=== PATIENT | female | born 1985 | race African-American/Black ===

== ENCOUNTER 2022-11-02 11:23 | Observation (INO) | payer MEDICAID ==
[2022-11-02] MEDS ORDERED: PREN-96 PO (13:26)
== END 2022-11-02 13:40 | disposition home or self-care (01) ==
LOC: LDRP 11:23 → UNDOADMOB 11:23 → LDRP 11:56 → UNDODISOB 13:40
PROVIDERS: ADMIT Obstetrics & Gynecology; ATTEND Obstetrics & Gynecology
DX: O62.9 Abnormality of forces of labor, unspecified (principal); Z3A.33 33 weeks gestation of pregnancy
CPT/HCPCS: 59025; 94760; G0378

== ENCOUNTER 2022-11-08 10:46 | Observation (INO) | payer MEDICAID ==
[~2022-11-08 10:46] MED LIST: PREN-96 PO
[2022-11-08] MEDS ORDERED: NIF10C PO (11:59)
[2022-11-08] MEDS ORDERED: ALBUAER3 IN (12:00)
== END 2022-11-08 12:14 | disposition home or self-care (01) ==
LOC: LDRP 10:46 → UNDOADMOB 10:46 → LDRP 11:17 → UNDODISOB 12:14
PROVIDERS: ADMIT Obstetrics & Gynecology; ATTEND Obstetrics & Gynecology
DX: O24.419 Gestational diabetes mellitus in pregnancy, unspecified control (principal); O62.9 Abnormality of forces of labor, unspecified; Z3A.34 34 weeks gestation of pregnancy; Z79.899 Other long term (current) drug therapy
CPT/HCPCS: 59025; 76818; 81002; 82948; 82962; 94760; G0378

== ENCOUNTER → 2022-11-17 | Outpatient (CLI) | payer MEDICAID ==
[~2022-11-17] MED LIST changes: +ALBUAER3 IN; +NIF10C PO
[2022-11-17 11:53] LABS: Basophils # (auto) 0 10 ^3/uL (0-0.2); Basophils % (auto) 0.8 % (0.0-2.0); Eosinophils # (auto) 0.1 10 ^3/uL (0-0.8); Eosinophils % (auto) 1.8 % (0.0-7.0); Hematocrit 37.6 % (36.0-46.0); Lymphocytes % (auto) 24.9 % (10.0-50.0); Mean Corpuscular Hemoglobin 31.8 pg (28.0-32.0); Mean Corpuscular Hgb Conc. 34.5 g/dL (32.0-36.0); Mean Corpuscular Volume 92.3 fL (80.0-100.0); Monocytes # (auto) 0.6 10 ^3/uL (0-1.3); Monocytes % (auto) 14.6 % (0.0-12.0); Neutrophils # (auto) 2.4 10 ^3/uL (1.6-8.6); Neutrophils % (auto) 57.9 % (37.0-80.0); Nucleated Red Blood Cells % 0.1 %; Red Blood Cells 4.07 10^6/uL (4.0-5.20); Red Cell Distribution Width 13.3 % (11.8-14.3); White Blood Cell 4.2 10^3/uL (4.4-10.8)
[2022-11-18 07:07] LABS: RPR Non Reactive (Non Reactive)
== END | disposition home or self-care (01) ==
LOC: LAB 11:24
PROVIDERS: ATTEND Obstetrics & Gynecology
DX: Z34.80 Encounter for supervision of other normal pregnancy, unspecified trimester (principal); Z3A.00 Weeks of gestation of pregnancy not specified
CPT/HCPCS: 36415; 84112; 85025; 86592

== ENCOUNTER 2022-11-26 21:38 | Observation (INO) | payer MEDICAID | END 2022-11-26 23:37 | disposition home or self-care (01) | LOC: EDUNIT# 21:38 → LDRP 21:38 | PROVIDERS: ADMIT Obstetrics & Gynecology; ATTEND Obstetrics & Gynecology | DX: O42.92 Full-term premature rupture of membranes, unspecified as to length of time between rupture and onset of labor (principal); Z3A.37 37 weeks gestation of pregnancy | CPT/HCPCS: 59025; 81002; 84112; G0378; Q0114 ==

== ENCOUNTER 2022-11-30 14:07 | Observation (INO) | payer MEDICAID | END 2022-12-03 13:52 | disposition home or self-care (01) | LOC: UNDOADMOB 12-03 11:04 → LDRP 12-03 11:04 → UNDODISOB 12-03 13:52 | PROVIDERS: ADMIT Obstetrics & Gynecology; ATTEND Obstetrics & Gynecology | DX: O24.419 Gestational diabetes mellitus in pregnancy, unspecified control (principal); O62.9 Abnormality of forces of labor, unspecified; O10.913 Unspecified pre-existing hypertension complicating pregnancy, third trimester; Z3A.38 38 weeks gestation of pregnancy | CPT/HCPCS: 59025; 76818; 81002; 82948; 94760; G0378 ==

== ENCOUNTER 2022-12-07 09:19 | Observation (INO) | payer MEDICAID ==
[2022-12-07] MEDS ORDERED: METF-370 PO (14:37)
== END 2022-12-07 14:44 | disposition home or self-care (01) ==
LOC: LDRP 13:00 → UNDOADMOB 13:00 → LDRP 13:10
PROVIDERS: ADMIT Obstetrics & Gynecology; ATTEND Obstetrics & Gynecology
DX: O24.419 Gestational diabetes mellitus in pregnancy, unspecified control (principal); O62.9 Abnormality of forces of labor, unspecified; Z3A.38 38 weeks gestation of pregnancy
CPT/HCPCS: 59025; 76818; 81002; 82948; 82962; 94760; G0378

== ENCOUNTER 2022-12-08 19:32 | Inpatient (IN) | payer MEDICAID ==
[~2022-12-08] VITALS: Ht 167.6 cm; Wt 101.6 kg
[~2022-12-08 19:32] MED LIST changes: +METF-370 PO
[2022-12-08] MEDS ORDERED: ACETAMINOPHEN 500 MG TAB PO ONE (20:45)
== END 2022-12-08 21:52 | disposition home or self-care (01) | DRG 566 ==
LOC: LDRP 19:32
PROVIDERS: ADMIT Obstetrics & Gynecology; ATTEND Obstetrics & Gynecology
DX: O24.419 Gestational diabetes mellitus in pregnancy, unspecified control (principal); Z3A.38 38 weeks gestation of pregnancy
CPT/HCPCS: 59025; 81002; 82962; G0378

== ENCOUNTER 2022-12-10 14:25 | Inpatient (IN) | payer MEDICAID ==
[~2022-12-10] VITALS: Ht 170.2 cm; Wt 101.6 kg
[2022-12-10] MEDS ORDERED: PROMETHAZINE HCL 25 MG/ML 1ML IV PRN (15:00)
[2022-12-10] MEDS ORDERED: LACTATED RINGER'S 1,000 ML IV SCH (15:00)
[2022-12-10] MEDS ORDERED: PHISODERM TOP SOLN 240ML BTL TOP PRN (15:00)
[2022-12-10] MEDS ORDERED: LIDOCAINE 2%HCL (LOCAL ANESTH.) INJ 20ML MDV IJ PRN (15:00)
[2022-12-10] MEDS ORDERED: BUTORPHANOL TARTRATE 2 MG/1 ML VIAL IV PRN ×2 (15:00)
[2022-12-10 15:56] LABS: Urine Bacteria FEW /hpf (None Seen); Urine Blood Negative /uL (Negative); Urine Specific Gravity 1.016 (1.001-1.035); Urine WBC 1 /hpf (0 - 5)
[2022-12-10] MEDS ORDERED: miSOPROStol 50 MCG per PRE-CUT 1/2 TAB PO PRN (16:00)
[2022-12-10] MEDS ORDERED: PENICILLIN G POT 5MIL/D5 50ML 50 ML IV ONE (16:00)
[2022-12-10] MEDS ORDERED: LACT. RINGERS/OXYTOCIN 20UNITS 500 ML IV ONE ×2 (16:00→16:30)
[2022-12-10] MEDS: DERMOPLAST 60ML BOTTLE TOP PRN (16:08)
[2022-12-10] MEDS: WITCH HAZEL-GLYCERIN PAD TOP PRN (16:08)
[2022-12-10 16:11] LABS: Alcohol, Urine < 3.0 mg/dL (0-10); Amphetamine Screen, Urine NEGATIVE (NEGATIVE); Barbiturate Scree,Urine NEGATIVE (NEGATIVE); Benzodiazephine Screen, Urine NEGATIVE (NEGATIVE); Cannabinoid Screen, Urine NEGATIVE (NEGATIVE); Cocaine Screen, Urine NEGATIVE (NEGATIVE); Opiate Scree,Urine NEGATIVE (NEGATIVE); Phencyclidine Screen, Urine NEGATIVE (NEGATIVE)
[2022-12-10 16:30] LABS: Basophils # (auto) 0 10 ^3/uL (0-0.2); Basophils % (auto) 0.5 % (0.0-2.0); Eosinophils # (auto) 0 10 ^3/uL (0-0.8); Hemoglobin 13.1 g/dL (12.2-16.2); Lymphocytes # (auto) 0.8 10 ^3/uL (0.4-5.4); Lymphocytes % (auto) 21.2 % (10.0-50.0); Mean Corpuscular Hemoglobin 31.1 pg (28.0-32.0); Mean Corpuscular Hgb Conc. 33.6 g/dL (32.0-36.0); Mean Corpuscular Volume 92.3 fL (80.0-100.0); Monocytes # (auto) 0.4 10 ^3/uL (0-1.3); Monocytes % (auto) 10.2 % (0.0-12.0); Neutrophils # (auto) 2.7 10 ^3/uL (1.6-8.6); Neutrophils % (auto) 67.1 % (37.0-80.0); Nucleated Red Blood Cells % 0.8 %; Red Blood Cells 4.23 10^6/uL (4.0-5.20); Red Cell Distribution Width 13.2 % (11.8-14.3)
[2022-12-10 16:35] LABS: Albumin 2.8 g/dL (3.4-5.0); Calcium 8.5 mg/dL (8.5-10.1); Potassium 4.2 mmol/L (3.5-5.1)
[2022-12-10 16:38] LABS: BUN/Creatinine Ratio 14.3; Bilirubin, Total 0.4 mg/dL (0.2-1.0); Total Protein 6.7 g/dL (6.4-8.2)
[2022-12-10] MEDS ORDERED: ONDANSETRON HCL 4 MG/2 ML VIAL IV PRN (17:45)
[2022-12-10] MEDS ORDERED: TRANEXAMIC ACID 1,000 MG in SODIUM CHL 0.9% 100 ML IV ONE (17:45)
[2022-12-10] MEDS ORDERED: miSOPROStol 100 mcg TAB PR PRN (17:45)
[2022-12-10] MEDS ORDERED: METHYLERGONOVINE MALEATE 0.2 MG/ML AMP IM PRN (17:45)
[2022-12-10] MEDS ORDERED: NALOXONE HCL 0.4 MG/ML VIAL IV ONE (18:15)
[2022-12-10] MEDS ORDERED: ePHEDrine SULFATE 50 MG/ML AMP IV ONE (18:15)
[2022-12-10] MEDS ORDERED: LACTATED RINGER'S 1,000 ML IV ONE (18:15)
[2022-12-10] MEDS ORDERED: fentaNYL CITRATE 100 MCG/2 ML VL IV ONE (18:15)
[2022-12-10] MEDS ORDERED: ROPIVACAINE HCL 200 ML EPI SCH (18:15)
[2022-12-10] MEDS ORDERED: Lidocaine W-Epinephrine 1.5%-1:200,000 INJ 10ml Vial ONE (18:48)
[2022-12-10] MEDS ORDERED: FAMOTIDINE (10MG/ML) 2ML VL IV ONE (19:35)
[2022-12-10] MEDS ORDERED: FAMOTIDINE (10MG/ML) 2ML VL IV PRN (19:45)
[2022-12-10 19:50] LABS: INR 0.92 (0.9-1.15)
[2022-12-10] MEDS ORDERED: PENICILLIN G POTASSIUM 2,500,000 UNITS in D5W 5% 50 ML IV SCH (20:00)
[2022-12-10] MEDS ORDERED: diphenhdrAMINE HCL 50 MG/1 ML VL IV PRN (20:15)
[2022-12-10] MEDS ORDERED: ACETAMINOPHEN 325 MG TAB PO PRN ×2 (21:30→22:30)
[2022-12-10] MEDS ORDERED: ONDANSETRON ODT 4 MG TAB PO PRN (22:30)
[2022-12-10 23:00] VITALS: BP 136/67
[2022-12-11 03:00] VITALS: BP 121/75
[2022-12-11] MEDS: IBUPROFEN 800 MG TAB PO PRN ×3 (04:10→21:45)
[2022-12-11 06:06] LABS: RPR Non Reactive (Non Reactive)
[2022-12-11 07:30] VITALS: BP 125/74
[2022-12-11 10:30] VITALS: BP 119/78
[2022-12-11] MEDS: HYDROcodone-ACET 5/325MG TAB PO PRN ×2 (12:54→18:49)
[2022-12-11 15:10] VITALS: BP 117/60
[2022-12-11 19:19] VITALS: BP 110/57
[2022-12-11] MEDS ORDERED: TETANUS-DIPTH-ACEL PERTUSSIS 0.5ML SYR Tdap IM ONE (21:00)
[2022-12-11] MEDS ORDERED: DOCUSATE SOD 100 MG CAP PO SCH (22:00)
[2022-12-11 22:47] VITALS: BP 117/72
[2022-12-12] MEDS: HYDROcodone-ACET 5/325MG TAB PO PRN ×2 (00:51→07:29)
[2022-12-12 03:00] VITALS: BP 107/65
[2022-12-12] MEDS: IBUPROFEN 800 MG TAB PO PRN ×2 (03:31→10:17)
[2022-12-12 07:10] VITALS: BP 116/74
[2022-12-12] MEDS: DERMOPLAST 60ML BOTTLE TOP PRN (10:27)
[2022-12-12] MEDS: WITCH HAZEL-GLYCERIN PAD TOP PRN (10:27)
[2022-12-12 10:36] VITALS: BP 132/87
== END 2022-12-12 10:51 | disposition home or self-care (01) | DRG 560 ==
LOC: LDRP 14:25
PROVIDERS: ADMIT Obstetrics & Gynecology; ATTEND Obstetrics & Gynecology
PROC: 10E0XZZ Delivery of Products of Conception, External Approach (ICD-10-PCS; principal; 2022-12-11)
PROC: 0HQ9XZZ Repair Perineum Skin, External Approach (ICD-10-PCS; 2022-12-11)
PROC: 3E0R3BZ Introduction of Anesthetic Agent into Spinal Canal, Percutaneous Approach (ICD-10-PCS; 2022-12-11)
PROC: 00HU33Z Insertion of Infusion Device into Spinal Canal, Percutaneous Approach (ICD-10-PCS; 2022-12-11)
DX: O24.429 Gestational diabetes mellitus in childbirth, unspecified control (principal); Z37.0 Single live birth; O70.0 First degree perineal laceration during delivery; Z3A.39 39 weeks gestation of pregnancy; Z20.822 Contact with and (suspected) exposure to COVID-19
CPT/HCPCS: 36415; 59025; 59409; 62282; 80053; 80307; 81001; 81002; 82948; 82962; 85025; 85610; 85730; 86592; 86850; 86900; 86901; 87426; 90715; 94760; 96360; 96361; G0378; J2540; J2590; J3490; J7060

== ENCOUNTER 2025-08-03 19:35 | Emergency (ER) | payer MEDICAID, OTHER ==
[~2025-08-03] VITALS: Ht 170.2 cm; Wt 92.0 kg
[~2025-08-03 19:35] MED LIST changes: -NIF10C PO; +NIFE10CA52 PO; +NITR-87 PO
[2025-08-03 19:39] VITALS: TEMP 98.6
[2025-08-04 03:13] LABS: Hematocrit 36.9 % (36.0-46.0); Hemoglobin 12.2 g/dL (12.2-16.2); Mean Corpuscular Hemoglobin 28.5 pg (28.0-32.0); Mean Corpuscular Volume 86.5 fL (80.0-100.0); Nucleated Red Blood Cells % 0.2 %
--- NOTE | 2025-08-04 03:27 | DVH ---
CHEST RADIOGRAPH Indication: sob Technique: Single frontal view of the chest was obtained COMPARISON: None FINDINGS: Lines and Tubes: None Lungs: Clear Pleura: No effusion. No pneumothorax. Cardiomediastinal contours: Unremarkable Bones: Unremarkable IMPRESSION: 1. No acute disease.
[2025-08-04 03:32] LABS: Alkaline Phosphatase 66 U/L (46-116); Anion Gap 15 (5-15); BUN/Creatinine Ratio 7.7 (10.0-20.0); Calcium 10.0 mg/dL (8.7-10.4); Carbon Dioxide 20 mmol/L (20-31); Chloride 104 mmol/L (98-107); Glucose 97 mg/dL (74-106); Potassium 4.4 mmol/L (3.5-5.1); Sodium 139 mmol/L (136-145)
[2025-08-04 03:33] LABS: Bilirubin, Total 1.0 mg/dL (0.2-1.0)
[2025-08-04 03:38] LABS: Alanine Aminotransferase 54 U/L (7-40); Albumin 4.8 g/dL (3.2-4.8); Blood Urea Nitrogen 8 mg/dL (9-23); Total Protein 8.8 g/dL (5.7-8.2)
--- NOTE | 2025-08-04 03:46 | ED.PDOC ---
SOB-HPI HPI Comments HPI: 40 year old female who came to ER for shortness of breath. Patient has history of asthma and anxiety. She ran out of her anxiety pills earlier, so she took some street Xanax, she became short of breath and extremely anxious, with one episode of nausea and vomiting. Patient is suspects that there was something mixed in the street Xanax. Past Medical History: Asthma, anxiety, panic attacks Surgical History: Denies Family History: Denies Personal and Social History: Denies HPI: Poor Historian. REVIEW OF SYSTEMS: CONSTITUTIONAL: Denies acute: fever, diaphoresis, chills, generalized weakness. HEAD: Denies acute: headache, photophobia Eyes: Denies acute: Double vision, vision loss, eye pain, eye discharge. EARS: Denies acute: tinnitus, hearing loss, ear discharge, ear pain, THROAT: Denies acute: sore throat, swelling, difficulty swallowing , pain with swallowing, change in voice. NECK: Denies acute: neck pain, neck swelling, stiff neck. HEART: Denies acute : chest pain, palpitations, LUNGS: Denies acute: , wheezing, cough, hemoptysis ABDOMEN: Denies acute: abdominal pain, Nausea, Vomiting, diarrhea, melena , hematemesis, hematochezia SKIN: Denies acute: rash, redness, lesions, itchiness. EXTREMITIES: Denies acute: calf pain, numbness, tingling, weakness, denies pain in extremity. Denies acute: Low back pain. Neuro: Denies acute: focal neurological deficit, motor or sensory focal neurological deficit, tremors, seizure like activity, confusion, dizziness, change in mental status, loss of bowel or bladder function, cauda equina like symptoms. : Denies acute: dysuria, hematuria, flank pain, increase in urinary frequency. PSYCH: Denies acute: hallucination, suicidal ideation, homicidal ideation. FEMALE: Denies acute: abnormal vaginal bleeding, foul odor, unusual discharge. PHYSICAL EXAM: General: ----mild----acute distress, awake and alert. Appears anxious Head: normocephalic, atraumatic. No raccoon's eyes, no cheek sign. Neck: supple, trachea is midline, no swelling. Throat: Normal phonation. Eyes:, no erythema, no purulent discharge, no proptosis, no icterus. Heart: regular rate, regular rhythm, no significant murmur appreciated. Lungs: no apparent respiratory distress, Able to speak in full sentences. No wheezing, no rhonchi, no crackles. No stridors Clear to auscultation bilaterally. Abdomen: non tender to palpation, non distended, soft, no guarding, no rebound, + bowel sounds. Neuro: Awake, Alert, oriented to name, self, situation, follows commands GCS=15. Speech is normal. Skin: no petechia, no purpura, no cyanosis, non-pale, not jaundice. Lower extremities: --no - Pitting edema no deformity, no focal swelling, no calf TTP. Makes eye contact. moves all four extremities. Face: no apparent facial droop. ED COURSE: DISCLAIMER: This medical document was created using an electronic medical record system with voice recognition software and computerized dictation system. Although this document has been carefully reviewed, there might still be some phonetic and typographical errors. Occasional wrong-word or "sound-alike" substitutions may have occurred due to the inherent limitations of voice recognition software. These areas are purely typographical due to imperfections of the software programs and do not reflect any compromise in the patient's medical care. Please read the chart carefully and recognize, using context, where these substitutions have occurred. Chief Complaint: Shortness of Breath Time Seen by MD: 03:48 Primary Care Provider: UNK Reviewed notes: Nurses Notes, Allergies Information Source: Patient Mode of Arrival: Ambulatory Past Medical History PAST MEDICAL HISTORY: Anxiety, Asthma Surgical History: Denies all surgeries PAPER MACHINE BACK TENDER History: No Pertinent PAPER MACHINE BACK TENDER History Family History Family History: Unknown Social History Smoker: Non-Smoker Lives In: Home Was a procedure done? Was a procedure done?: No X-Ray, Labs, Meds, VS Vital Signs Date Time Temp Pulse Resp B/P (MAP) Pulse Ox O2 Delivery O2 Flow Rate FiO2 08/04/25 04:01 20 98 Room Air* 0 21 08/03/25 19:39 98.6 114 20 170/99 99 98.6 Lab Test 08/04/25 03:26 08/04/25 02:53 Range/Units Urine Opiates Screen Neg NEGATIVE Urine Fentanyl Screen Neg NEGATIVE Urine Barbiturates Screen Neg NEGATIVE Urine Phencyclidine Screen Neg NEGATIVE Urine Amphetamines Screen Neg NEGATIVE Urine Benzodiazepines Screen Neg NEGATIVE Urine Cocaine Screen Neg NEGATIVE Urine Cannabinoids Screen Neg NEGATIVE White Blood Count 4.8 4.4-10.8 10^3/uL Red Blood Count 4.27 4.0-5.20 10^6/uL Hemoglobin 12.2 12.2-16.2 g/dL Hematocrit 36.9 36.0-46.0 % Mean Corpuscular Volume 86.5 80.0-100.0 fL Mean Corpuscular Hemoglobin 28.5 28.0-32.0 pg Mean Corpuscular Hemoglobin Concent 33.0 32.0-36.0 g/dL Red Cell Distribution Width 16.7 H 11.8-14.3 % Platelet Count 275 140-450 10^3/uL Mean Platelet Volume 7.6 6.9-10.8 fL Neutrophils (%) (Auto) 60.0 37.0-80.0 % Lymphocytes (%) (Auto) 24.0 10.0-50.0 % Monocytes (%) (Auto) 12.4 H 0.0-12.0 % Eosinophils (%) (Auto) 0.5 0.0-7.0 % Basophils (%) (Auto) 3.1 H 0.0-2.0 % Neutrophils # (Auto) 2.9 1.6-8.6 10 ^3/uL Lymphocytes # (Auto) 1.2 0.4-5.4 10 ^3/uL Monocytes # (Auto) 0.6 0-1.3 10 ^3/uL Eosinophils # (Auto) 0 0-0.8 10 ^3/uL Basophils # (Auto) 0.1 0-0.2 10 ^3/uL Nucleated Red Blood Cells 0.2 % Sodium Level 139 136-145 mmol/L Potassium Level 4.4 3.5-5.1 mmol/L Chloride Level 104 98-107 mmol/L Carbon Dioxide Level 20 20-31 mmol/L Anion Gap 15 5-15 Blood Urea Nitrogen 8 L 9-23 mg/dL Creatinine 1.04 H 0.550-1.02 mg/dL Glomerular Filtration Rate Calc 70 >90 mL/min BUN/Creatinine Ratio 7.7 L 10.0-20.0 Serum Glucose 97 74-106 mg/dL Calcium Level 10.0 8.7-10.4 mg/dL Total Bilirubin 1.0 0.2-1.0 mg/dL Aspartate Amino Transferase (AST) 118 H 13-40 U/L Alanine Aminotransferase (ALT) 54 H 7-40 U/L Alkaline Phosphatase 66 46-116 U/L Troponin I High Sensitivity < 3 L </=34 ng/L Total Protein 8.8 H 5.7-8.2 g/dL Albumin 4.8 3.2-4.8 g/dL Current Medications Medications (Trade) Dose Ordered Sig/Kimberly Route Start Time Stop Time Status Last Admin Albuterol (Ventolin Medneb) 2.5 mg ONCE ONCE NEB 08/04/25 03:45 08/04/25 03:46 DC 08/04/25 04:01 Ipratropium [place] (Atrovent Medneb) 1 mg ONCE ONCE NEB 08/04/25 03:45 08/04/25 03:46 DC 08/04/25 04:01 [place] [address] Ph: [phone] DIAGNOSTIC IMAGING Diagnostic Imaging Report : [id number] Signed PATIENT: ANKUR RODRIGUEZ ACCT: [id number] UNIT: [id number] : 1985 LOC: ER ROOM / BED: / AGE / SEX: 40 / F ADM STATUS: REG ER SERVICE 4 ORDERING PHYSICIAN: SOLO OSUNA DO PROCEDURE(s): CXRP - CHEST PORTABLE REASON: sob ORDER NUMBER(s): [id number], ACCESSION NUMBER(s): [id number] CHEST RADIOGRAPH Indication: sob Technique: Single frontal view of the chest was obtained COMPARISON: None FINDINGS: Lines and Tubes: None Lungs: Clear Pleura: No effusion. No pneumothorax. Cardiomediastinal contours: Unremarkable Bones: Unremarkable IMPRESSION: 1. No acute disease. ATED BY: VANCE GOMEZ MD DICTATED DATE/TIME: 08/04/25323 SIGNED BY: VANCE GOMEZ MD SIGNED DATE/TIME: 08/04/25323 CC: Time of 1ST Reevaluation: 04:24 Reevaluation 1ST: Unchanged Patient Education/Counseling: Diagnosis, Treatment Family Education/Counseling: Diagnosis, Treatment SEPSIS Sepsis Screen Date sepsis recognized/suspect: Aug 03, 2025 Time Sepsis recognized/suspect: 1942 Recent Procedure: No On Antibiotic Therapy: No Respiratory Rate >20: No Heart Rate >90: Yes Temp<36 C (96.8 F) or >38.3 C: No SBP <90 or MAP <65 mmHG: No New Acute Mental Status Change: No Is the patient on CPAP, BIPAP,: No Physician Orders Car Top Bolter (08/04/25 ) Chest Portable (08/04/25 02:45) Electrocardigram (08/04/25 02:45) Lorazepam Tablet (Ativan Tablet) (08/04/25 04:30) Vital Signs Date Time Temp Pulse Resp B/P (MAP) Pulse Ox O2 Delivery O2 Flow Rate FiO2 08/04/25 04:01 20 98 Room Air* 0 21 08/03/25 19:39 98.6 114 20 170/99 99 98.6 Laboratory Tests Test 08/04/25 02:53 White Blood Count 4.8 10^3/uL (4.4-10.8) Medications Medications Dose Ordered Sig/Kimberly Route Start Time Stop Time Status Last Admin Dose Admin Albuterol 2.5 mg ONCE ONCE NEB 08/04/25 03:45 08/04/25 03:46 DC 08/04/25 04:01 Ipratropium [place] 1 mg ONCE ONCE NEB 08/04/25 03:45 08/04/25 03:46 DC 08/04/25 04:01 Departure 1 Departure Time of Disposition: 04:22 Impression: Primary Impression: Anxiety Disposition: 01 HOME / SELF CARE / HOMELESS Condition: Stable Additional Instructions: Additional instructions: Please read all instructions provided in this packet carefully. You MUST follow-up with your primary care/family doctor in 1 to 2 days. If you are unable to see your primary care/family doctor, please return to our emergency room for re-assessment and re-evaluation in 1 to 2 days. Return to the emergency room here in our facility or to the nearest ER [facility] if your symptoms change or worsen. Do not use street drugs. Adequate fluid hydration. Although you have been discharged from the Emergency Department, this does not mean that you have a "clean bill of health". No definitive diagnosis for your symptoms has been made today. It is possible that you are in the process of developing a serious illness. This is why you must return to the ED without fail if any new or worsening symptoms develop. [address] [address] Ph: [phone] DIAGNOSTIC IMAGING Diagnostic Imaging Report : [id number] Signed PATIENT: ANKUR RODRIGUEZ ACCT: [id number] UNIT: [id number] : 1985 LOC: ER ROOM / BED: / AGE / SEX: 40 / F ADM STATUS: REG ER SERVICE 4 ORDERING PHYSICIAN: SOLO OSUNA DO PROCEDURE(s): CXRP - CHEST PORTABLE REASON: sob ORDER NUMBER(s): [id number], ACCESSION NUMBER(s): [id number] CHEST RADIOGRAPH Indication: sob Technique: Single frontal view of the chest was obtained COMPARISON: None FINDINGS: Lines and Tubes: None Lungs: Clear Pleura: No effusion. No pneumothorax. Cardiomediastinal contours: Unremarkable Bones: Unremarkable IMPRESSION: 1. No acute disease. ATED BY: VANCE GMOEZ MD DICTATED DATE/TIME: 08/04/25323 SIGNED BY: VANCE GOMEZ MD SIGNED DATE/TIME: 08/04/25323 CC: Discharged With: Self Critical Care Note Critical Care Time?: No I personally scribed for SOLO OSUNA DO ([email or web address]) on 08/04/25 at 03:46. Electronically submitted by Raj Montes ([facility]). I personally scribed for SOLO OSUNA DO ([email or web address]) on 08/04/25 at 03:48. Electronically submitted by Raj Montes ([facility]). I personally scribed for SOLO OSUNA DO ([email or web address]) on 08/04/25 at 04:24. Electronically submitted by Raj Montes ([facility]). I personally scribed for SOLO OSUNA DO ([email or web address]) on 08/04/25 at 04:25. Electronically submitted by Raj Montes ([facility]). SOLO OSUNA DO Aug 04, 2025 03:46
[2025-08-04 03:59] LABS: Benzodiazephine Screen, Urine Neg (NEGATIVE)
[2025-08-04] MEDS: ALBUTEROL SULF 2.5 MG/0.5ML(0.5%) NEB SOLN NEB ONE (04:01)
[2025-08-04] MEDS: IPRATROPIUM BROM 0.5 MG/2.5ML INH SOL NEB ONE (04:01)
[2025-08-04 04:08] LABS: Amphetamine Screen, Urine Neg (NEGATIVE); Barbiturate Scree,Urine Neg (NEGATIVE); Cannabinoid Screen, Urine Neg (NEGATIVE); Cocaine Screen, Urine Neg (NEGATIVE); Opiate Scree,Urine Neg (NEGATIVE); Phencyclidine Screen, Urine Neg (NEGATIVE)
[2025-08-04] MEDS: LORazepam 0.5 MG TAB PO ONE (05:25)
[2025-08-04 05:40] VITALS: BP 146/74; PULSE 77; RESP 18; O2SAT 100
== END 2025-08-04 05:48 | disposition home or self-care (01) ==
LOC: ER 19:39
DX: F41.9 Anxiety disorder, unspecified (principal); J45.909 Unspecified asthma, uncomplicated; Z79.899 Other long term (current) drug therapy
CPT/HCPCS: 36415; 71045; 80053; 80307; 84484; 85025; 94640